=== PATIENT | female | born 1960 | race Caucasian/White ===

== ENCOUNTER 2021-02-22 10:31 | Emergency (ER) | payer BC ==
[2021-02-22 11:58] LABS: Protime INR 0.97
--- NOTE | 2021-02-22 12:04 | RAD REPORT ---
EXAM DESCRIPTION: CT - Head Brain Wo Cont - 02/22/2021 11:50 am CLINICAL HISTORY: DIZZINESS, history of CVA COMPARISON: No comparisons TECHNIQUE: Axial 5 mm thick images of the head were obtained without IV contrast. All CT scans are performed using dose optimization technique as appropriate and may include automated exposure control or mA/KV adjustment according to patient size. FINDINGS: No intracranial hemorrhage, mass, edema or shift of mid-line structures. No acute cortical based infarction identified. Patient has areas of encephalomalacia in the anteromedial left frontal lobe and in the posterior left frontal lobe and frontal parietal junction extending inferiorly to the sylvian fissure. These are areas of old infarction and match the patient provided history. No abnorm al extra-axial fluid collections. Ventricles are normal. No significant underlying atrophy. Mastoid air cells and visualized portions of the paranasal sinuses are clear. No acute bony findings. IMPRESSION: Negative non-contrast CT head examination for acute finding. Old left frontal lobe infarction changes are present.
--- NOTE | 2021-02-22 12:19 | RAD REPORT ---
EXAM DESCRIPTION: RAD - Chest Single View - 02/22/2021 12:04 pm CLINICAL HISTORY: dizziness COMPARISON: None TECHNIQUE: AP portable chest image was obtained 02/22/2021 12:04 pm . FINDINGS: No focal mass or consolidation. A few small granulomas are noted. CABG surgical changes se en. Heart and vasculature are normal. No measurable pleural effusion and no pneumothorax. No acute [place] abnormality seen. No acute aortic findings suspected. IMPRESSION: No acute cardiopulmonary process.
[2021-02-22 12:20] LABS: ALT/SGPT 22 U/L (12-78); AST/SGOT 6 U/L (15-37); Albumin 3.6 g/dL (3.4-5.0); Alkaline Phosphatase 71 U/L (45-117); BUN Blood Urea Nitrogen 44 mg/dL (7-18); Bicarbonate 23 mmol/L (21-32); Bilirubin Direct 0.1 mg/dL (0-0.2); Bilirubin Total 0.4 mg/dL (0.2-1.0); Glucose Level 247 mg/dL (74-106); Magnesium 2.5 mg/dL (1.8-2.4); NT PRO-BNP 1882 pg/mL (<125); Potassium 4.9 mmol/L (3.5-5.1); Protein, Total 7.5 g/dL (6.4-8.2); Sodium Level 138 mmol/L (136-145); Troponin (Emerg Dept Use Only) < 0.02 ng/mL (0.0-0.045)
[2021-02-22 13:27] LABS: Basophils % 0.7 % (0-1.3); Hematocrit 34.2 % (36.0-45.0); Lymphocytes % 14.5 % (15.3-44.8); MPV 8.9 fL (7.6-11.3); RBC Red Blood Cell Count 4.02 M/uL (3.86-4.86)
--- NOTE | 2021-02-22 14:41 | RAD REPORT ---
EXAM DESCRIPTION: MRI - Brain W/Wo Cont - 02/22/2021 2:30 pm CLINICAL HISTORY: Dizziness COMPARISON: Head CT February 22, 2021 TECHNIQUE: Axial, sagittal, and coronal magnetic resonance images of the brain were obtained. 20 cc MultiHance administered intravenously FINDINGS: 5.5 centimeter area of abnormal signal left parietal lobe. It is compatible with old infar cts. Curvilinear areas of increased signal on T1 weighted sequences indicate cortical laminar necrosi s. Smaller areas of abnormal signal within the left frontal lobe likely additional infarction. Diffusion-weighted/ADC mapping does not reveal evidence of acute infarction. The ventricles are normal caliber. An extra-axial fluid collection is not noted. Fluid within the sinuses/mastoids is not seen IMPRESSION: Old left cerebral infarction
--- NOTE | 2021-02-22 14:52 | EDPHYS ---
Physician Documentation [facility] Name: Heather Diehl Age: 60 yrs Sex: Female : 1960 Arrival Date: 02/22/2021 Time: 10:35 Bed 15 Private MD: ED Physician Gerald Chavira HPI: 02/22 12:38 This 60 yrs old Female presents to ER via EMS with complaints of dizziness. jr8 12:38 The patient presents with feeling off balance. Onset: The symptoms/episode jr8 began/occurred acutely, today. Context: occurred at home, occurred while the patient was walking, just prior to the episode the patient experienced no apparent symptoms. Modifying factors: The symptoms are alleviated by nothing, the symptoms are aggravated by nothing. Associated signs and symptoms: The patient has no apparent associated signs or symptoms. Severity of symptoms: At their worst the symptoms were moderate in the emergency department the symptoms have resolved. Patient's baseline: Neuro: alert and fully oriented, Motor: no deficits, Ambulation: walks without assistance, Speech: normal. The patient has not experienced similar symptoms in the past. The patient has not recently seen a physician. This is a 60-year-old female patient was brought to the emergency room after having an episode of dizziness at home. Stated that she felt off balance and was running into the hill. Patient brought to the emergency room for further evaluation at that time. Patient stated that she has had 3 previous strokes in the past but that these did not feel like the one she had had in the past. Feeling much better at this time. Thought she may have just had anxiety.. Historical: - Allergies: 10:47 bee stings; jd3 10:47 Tylox; jd3 10:47 Naproxen; jd3 - Home Meds: 10:47 aspirin 81 mg Oral chew 1 tab once daily [Active]; atorvastatin 80 mg oral tab 1 tab jd3 once daily [Active]; Wellbutrin XL 150 mg Oral Tb24 1 tab once daily [Active]; meloxicam oral [Active]; - PMHx: 10:47 3 prior CVA's; jd3 - PSHx: 10:52 CABG; jd3 - Immunization history:: Adult Immunizations unknown. - Social history:: Smoking status: Patient denies any tobacco usage or history of. ROS: 12:38 Eyes: Negative for injury, pain, redness, and discharge, ENT: Negative for injury, jr8 pain, and discharge, Neck: Negative for injury, pain, and swelling, Cardiovascular: Negative for chest pain, palpitations, and edema, Respiratory: Negative for shortness of breath, cough, wheezing, and pleuritic chest pain, Abdomen/GI: Negative for abdominal pain, nausea, vomiting, diarrhea, and constipation, Back: Negative for injury and pain, MS/Extremity: Negative for injury and deformity, Skin: Negative for injury, rash, and discoloration. 12:38 Neuro: Positive for dizziness. Exam: 12:38 Constitutional: This is a well developed, well nourished patient who is awake, alert, jr8 and in no acute distress. Eyes: Pupils equal round and reactive to light, extra-ocular motions intact. Lids and lashes normal. Conjunctiva and sclera are non-icteric and not injected. Cornea within normal limits. Periorbital areas with no swelling, redness, or edema. ENT: Nares patent. No nasal discharge, no septal abnormalities noted. Tympanic membranes are normal and external auditory canals are clear. Oropharynx with no redness, swelling, or masses, exudates, or evidence of obstruction, uvula midline. Mucous membranes moist. Neck: Trachea midline, no thyromegaly or masses palpated, and no cervical lymphadenopathy. Supple, full range of motion without nuchal rigidity, or vertebral point tenderness. No Meningismus. Cardiovascular: Regular rate and rhythm with a normal S1 and S2. No gallops, murmurs, or rubs. Normal PMI, no JVD. No pulse deficits. Respiratory: Lungs have equal breath sounds bilaterally, clear to auscultation and percussion. No rales, rhonchi or wheezes noted. No increased work of breathing, no retractions or nasal flaring. Abdomen/GI: Soft, non-tender, with normal bowel sounds. No distension or tympany. No guarding or rebound. No evidence of tenderness throughout. Skin: Warm, dry with normal turgor. Normal color with no rashes, no lesions, and no evidence of cellulitis. MS/ Extremity: Pulses equal, no cyanosis. Neurovascular intact. Full, normal range of motion. 12:38 Neuro: Orientation: to person, place, time \T\ situation. Mentation: is normal, Memory: is normal, Cranial nerves: CN I not tested, CN II- XII are normal as tested, visual hollings[place] are intact. extraocular movements are intact, Facial palsy and sensory deficits are absent. Nystagmus is absent. Speech is clear and appropriate. Tongue strength is normal, Cerebellar function: normal finger to nose testing, heel to pederson testing is normal, Motor: moves all fours, Sensation: no obvious gross deficits, seizure activity, is not displayed by the patient, Abnormal movements: there are no abnormal movements. Vital Signs: 10:47 BP 127 / 92; Pulse 93; Resp 17 S; Pulse Ox 100% on R/A; Weight 81.65 kg (R); Height 5 jd3 ft. 5 in. (165.10 cm) (R); Pain 0/10; 15:25 BP 150 / 88; Pulse 82; Resp 18; Pulse Ox 100% on R/A; tr6 10:47 Body Mass Index 29.95 (81.65 kg, 165.10 cm) jd3 NIH Stroke Scale Scores: 12:38 NIHSS Score: 0 jr8 MDM: 10:37 Patient medically screened. jr8 14:49 Data reviewed: vital signs, nurses notes, lab test result(s), EKG, radiologic studies, jr8 CT scan, MRI, plain films. Data interpreted: Pulse oximetry: on room air is 100 %. Interpretation: normal. Counseling: I had a detailed discussion with the patient and/or guardian regarding: the historical points, exam findings, and any diagnostic results supporting the discharge/admit diagnosis, lab results, radiology results, the need for outpatient follow up, a neurologist, to return to the emergency department if symptoms worsen or persist or if there are any questions or concerns that arise at home. ED course: Patient hemodynamically stable. Symptoms have remained resolved. MRI with no new acute infarction. Patient to follow up with neurology in next 24-48 hours. Will start her back on her plavix. Knows to come back to ED immediately if worse or symptoms were to start up again . 02/22 11:07 Order name: Basic Metabolic Panel; Complete Time: 12:23 02/22 11:07 Order name: CBC with Diff; Complete Time: 14:09 02/22 11:07 Order name: LFT's; Complete Time: 12:23 02/22 11:07 Order name: Magnesium; Complete Time: 12:23 02/22 11:07 Order name: NT PRO-BNP; Complete Time: 12:23 02/22 11:07 Order name: PT-INR; Complete Time: 12:23 02/22 11:07 Order name: Troponin (emerg Dept Use Only); Complete Time: 12:23 02/22 11:07 Order name: XRAY Chest (1 view); Complete Time: 12:23 02/22 11:07 Order name: EKG; Complete Time: 11:07 02/22 11:07 Order name: Cardiac monitoring; Complete Time: 11:32 02/22 11:07 Order name: EKG - Nurse/Tech; Complete Time: 12:22 02/22 11:07 Order name: CT Head Brain wo Cont; Complete Time: 12:23 02/22 14:30 Order name: Brain W/Wo Cont; Complete Time: 14:49 EDMS 02/22 11:07 Order name: IV Saline Lock; Complete Time: 11:37 02/22 11:07 Order name: Labs collected and sent; Complete Time: 11:37 02/22 11:07 Order name: O2 Per Protocol; Complete Time: 11:02/22 11:07 Order name: O2 Sat Monitoring; Complete Time: 11:31 Administered Medications: No medications were administered Disposition: 02/23 07:45 Co-signature as Attending Physician, Gerald Chavira MD I agree with the assessment and shira plan of care. Disposition Summary: 02/22/21 14:51 Discharge Ordered Location: Home [facility] Problem: new jr8 Symptoms: have improved jr8 Condition: Stable jr8 Diagnosis - Dizziness and giddiness jr8 Followup: jr8 - With: Malcolm Coker MD - When: 1 - 2 days - Reason: Recheck today's complaints, Continuance of care, Re-evaluation by your physician Discharge Instructions: - Discharge Summary Sheet jr8 - Dizziness jr8 - Vertigo jr8 Forms: - Medication Reconciliation Form jr8 - Thank You Letter jr8 - Antibiotic Education jr8 - Prescription Opioid Use jr8 Prescriptions: - Meclizine 25 mg Oral Tablet - take 1 tablet by ORAL route every 8 hours As needed; 30 tablet; Refills: 0, jr8 Product Selection Permitted - Plavix 75 mg Oral Tablet - take 1 tablet by ORAL route once daily; 20 tablet; Refills: 0, Product jr8 Selection Permitted NIH Stroke Scale - NIH Stroke Score Date: 02/22/2021 Time: 12:38 Total Score = 0 1a. Level of Consciousness (LOC) - 0(Alert) 1b. Level of Consciousness (LOC) (Month \T\ Age) - 0(Both) 1c. LOC Commands (Open \T\ Closes Eyes/Size Cutter) - 0(Both) 2. Best Gaze (Lateral Gaze Paresis) - 0(Normal) 3. Visual Field Loss - 0(No visual loss) 4. Facial Palsy - 0(Normal) 5a. Left Arm: Motor (10-second hold) - 0(No drift) 5b. Right Arm: Motor (10-second hold) - 0(No drift) 6a. Left Leg: Motor (5-second hold - always test supine) - 0(No drift) 6b. Right Leg: Motor (5-second hold - always test supine) - 0(No drift) 7. Limb Ataxia (finger/nose \T\ heel/pederson - test with eyes open) - 0(Absent) 8. Sensory Loss (pinprick arms/legs/face) - 0(Normal) 9. Best Language: Aphasia (description/naming/reading) - 0(No aphasia) 10. Dysarthria (speech clarity - read or repeat words) - 0(Normal) 11. Extinction and Inattention (visual/tactile/auditory/spatial/personal) - 0(No abnormality) Initials: jr8 Signatures: Dispatcher [employer] EDMS Gerald Chavira MD MD cha Roszak, Josh, PA PA jrAdrián Cabrera RN RN jd3 Corrections: (The following items were deleted from the chart) 02/22 14:30 12:25 Brain Wo Cont+MRI.RAD.BRZ ordered. EDCT EDMS
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
[2021-02-22 15:36] VITALS: O2SAT 100
[2021-02-22 15:37] VITALS: BP 150/88
--- NOTE | 2021-02-23 16:15 | EKG ---
Test Date: 2021-02-22 Test Time: 12:51:53 Fraud Examiner: VENU MEASUREMENT RESULTS: Intervals: Rate: 87 GA: 160 QRSD: 82 QT: 380 QTc: 457 [place]: P: 67 GA: 160 QRS: 29 T: 93 INTERPRETIVE STATEMENTS: Normal sinus rhythm Cannot rule out Anterior infarct, age undetermined Abnormal ECG No previous ECG available for comparison Electronically Signed On 02-23-21 16:11:58 CDT by Yoan Corona
== END 2021-02-22 15:27 | disposition home or self-care (01) ==
LOC: ER 10:31
DX: R42 Dizziness and giddiness (principal); Z86.73 Personal history of transient ischemic attack (TIA), and cerebral infarction without residual deficits; Z79.82 Long term (current) use of aspirin; Z88.6 Allergy status to analgesic agent; Z95.1 Presence of aortocoronary bypass graft; Z91.030 Bee allergy status
CPT/HCPCS: 36415; 70450; 70553; 71045; 80048; 80076; 83735; 83880; 84484; 85025; 85610; 93005; 99284